=== PATIENT | female | born 1985 | race Hispanic/Latino ===

== ENCOUNTER 2020-01-11 16:28 | Emergency (ER) | payer MEDICAID, OTHER ==
[2020-01-12 15:41] LABS: SARS-CoV-2 MS2 Positive; SARS-CoV-2 N Gene Positive; SARS-CoV-2 S Gene Positive; SARS-CoV-2 orf1ab Positive
== END 2020-01-11 17:25 | disposition home or self-care (01) ==
LOC: ERS 16:28
DX: U07.1 COVID-19 (principal)
CPT/HCPCS: 87635; 99283; U0003

== ENCOUNTER 2020-01-22 17:16 | Emergency (ER) | payer MEDICAID, OTHER | END 2020-01-22 17:27 | disposition home or self-care (01) | LOC: ERS 17:16 | DX: Z20.828 Contact with and (suspected) exposure to other viral communicable diseases (principal) | CPT/HCPCS: 99283 ==